=== PATIENT | female | born 1980 | race Caucasian/White ===

== ENCOUNTER 2018-08-01 10:42 | Emergency (ER) | payer OTHER ==
[2018-08-01 10:57] VITALS: BP 81/55
--- NOTE | 2018-08-01 11:12 | ED Physician Documentation ---
General Adult - HISTORIAN Historian: patient - HPI Stated Complaint: R rib pain Chief Complaint: General Adult Additional Information: Patient presents to ED with a 2 day history of right pleuritic chest pain with productive cough. Patient has a history of DM1 and hypothryoidism. She states she has been off her levothyroxine for over 2 years due to inability to afford the medications. Prior to going off her levothyroxine she was taking 300 mcg daily and 600 mcg on Sundays. She denies fever, chills, nightsweats. Blood sugars are running between 200 -400. Onset: days ago (2) Timing: still present Severity: moderate Context: deep inspiration and coughing makes right rib pain worse Location: right rib pain Further Comments: no - ROS CONST: denies: fever, sweating, weakness EYES/ENT: denies: sore throat, nasal drainage CVS/RESP: chest pain (right rib pain), cough. denies: shortness of breath GI/: denies: abdominal pain, vomiting, nausea MS/SKIN/LYMPH: none NEURO/PSYCH: denies: headache, dizziness - PAST HX Past History: none Other History: diabetes Type 1 Surgeries/Procedures: none Allergies/Adverse Reactions: Allergies Allergy/AdvReac Type Severity Reaction Status Date / Time No Known Allergies Allergy Verified 08/01/18 10:57 Home Medications: Ambulatory Orders Medication Instructions Recorded Insulin Aspart [Novolog Flexpen] 100 units PRN PRN 10/19/13 Ciprofloxacin HCl [Cipro] 500 mg PO BID #20 tablet 08/01/18 Insulin Degludec [Tresiba 10 unit SQ HS 08/01/18 Flextouch U-100] Levothyroxine Sodium 200 mcg PO DAILY #30 tablet 08/01/18 - SOCIAL HX Smoking History: cigarettes, greater than 1 pack/day (15 pack year history) Alcohol Use: none Drug Use: marijuana - FAMILY HX Family History: No - VITAL SIGNS Vital Signs: Vital Signs Temp Pulse Resp BP Pulse Ox 97.2 F L 94 H 17 81/55 93 08/01/18 10:45 08/01/18 10:45 08/01/18 10:45 08/01/18 10:45 08/01/18 10:45 - REVIEWED ASSESSMENTS Nursing Assessment Reviewed: Yes Vitals Reviewed: Yes ED Results Lab/Radiology - Radiology Radiology Impressions: Chest, 2 view History: Cough for 2 weeks. Findings: There is consolidation within the right middle lobe consistent with pneumonia. The left lung is clear. No pleural effusion or pneumothorax identified. The osseous structures are normal. Impression: 1. Right middle consolidation consistent with pneumonia. Electronically signed on Aug 01, 2018 12:16:49 PM MARBLEIZER by: Noam Islas - Orders Orders: ED Orders Category Date Time Status Place IV Lock 1T Care 08/01/18 11:01 Ordered CHEST 2VIEW [RAD] Stat Exams 08/01/18 Ordered CBC/PLATELET/DIFF Routine Lab 08/01/18 Ordered CMP Routine Lab 08/01/18 Ordered THYROID STIMULATING HORMONE Stat Lab 08/01/18 Ordered General Adult Physical Exam - PHYSICAL EXAM GENERAL APPEARANCE: no distress EENT: MANNY NECK: supple RESPIRATORY: chest non-tender, other (markedly diminished breath sounds bilaterally) CVS: reg rate & rhythm, heart sounds normal ABDOMEN: soft, normal bowel sounds BACK: no CVA tenderness SKIN: warm/dry, pallor EXTREMITIES: non-tender, normal range of motion NEURO: oriented X3, depressed mood/affect Discharge Clincal Impression: Hypothyroidism (acquired) Right middle lobe pneumonia Qualifiers: Pneumonia type: due to unspecified organism Qualified Code(s): J18.1 - Lobar pneumonia, unspecified organism Prescriptions: Ciprofloxacin HCl [Cipro] 500 mg PO BID #20 tablet Levothyroxine Sodium 200 mcg PO DAILY #30 tablet Referrals: Dale Collins [Primary Care Provider] - 2 Days Additional Instructions: 1. Finish full antibiotic regimen at prescribed. 2. Important to take levothryoxine for hypothryoid 3. Follow up with PCP as soon as possible to monitor thyroid function 4. Return to ED for new or worsening symptoms of shortness of breath, fever >101.0 or chest pain. 5. Smoking cessation recommended. Comments: Patient was instructed on complications of untreated hypothryoidism. Will give 30 day supply of levothryoxine at lower dose than reported. She was instructed to follow up with PCP to have thyroid function monitored. Patient does not have insurance. Rocephin IV was given in ED with a 10 day supply of PO Cipro sent to pharmacy Condition: Stable Decision to Admit: NO Date of Decison to Admit: 08/01/18 Decision Time: 12:52
[2018-08-01 11:30] LABS: MEAN CORPUSCULAR HEMOGLOBIN 34.5 pg (28.0-34.0)
[2018-08-01 11:31] LABS: BASOPHILS % 0.3 (0.0-1.5); EOSINOPHILS % 1.9 % (0.0-6.8); MONOCYTES % 4.9 % (0.0-11.0)
[2018-08-01 11:50] LABS: eGFR (Non-African) > 60
[2018-08-01] MEDS: cefTRIAXone SODIUM 1 GM in 0.9 % SODIUM CHLORIDE 50 ML IV ONE (12:30)
[2018-08-01] MEDS: cefTRIAXone SODIUM 1 GM VIAL ONE (13:23)
--- NOTE | 2018-08-01 20:09 | Diagnostic Imaging Report ---
JUDD ZAFAR [facility] [id number] [facility] [address] [address] Report Submission Date: Aug 01, 2018 12:16:49 PM METHODS ANALYST Patient Study Name: ANNI VILLA Date: Aug 01, 2018 11:27:47 AM METHODS ANALYST Modality Type: DX Gender: F Description: CHEST : 76 Institution: [facility] Physician: JUDD ZAFAR Chest, 2 view History: Cough for 2 weeks. Findings: There is consolidation within the right middle lobe consistent with pneumonia. The left lung is clear. No pleural effusion or pneumothorax identified. The osseous structures are normal. Impression: 1. Right middle consolidation consistent with pneumonia. Electronically signed on Aug 01, 2018 12:16:49 PM METHODS ANALYST by: Noam TERRELL
== END 2018-08-01 13:00 ==
LOC: ED 10:42
DX: J18.1 Lobar pneumonia, unspecified organism (principal); E03.9 Hypothyroidism, unspecified; Z72.0 Tobacco use
CPT/HCPCS: 71046; 80053; 84443; 85025; 96365; 99284; J0696; 36415; S1016